=== PATIENT | female | born 1955 | race Caucasian/White ===

== ENCOUNTER 2018-10-04 08:38 | Emergency (ER) | payer BC, MEDICARE ==
[2018-10-04] MEDS ORDERED: Ondansetron 4 MG Tab.DIS PO ONE (09:27)
[2018-10-04] MEDS ORDERED: Acetaminophen/oxyCODONE 325-5 MG Tab PO ONE (09:28)
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
== END 2018-10-04 09:43 | disposition home or self-care (01) ==
LOC: JD.ED 08:38
DX: M46.1 Sacroiliitis, not elsewhere classified (principal); E78.00 Pure hypercholesterolemia, unspecified; I10 Essential (primary) hypertension; E11.9 Type 2 diabetes mellitus without complications; Z91.030 Bee allergy status; Z88.5 Allergy status to narcotic agent; Z88.0 Allergy status to penicillin; Z88.2 Allergy status to sulfonamides; Z79.899 Other long term (current) drug therapy; Z87.442 Personal history of urinary calculi; Z79.84 Long term (current) use of oral hypoglycemic drugs; Z87.891 Personal history of nicotine dependence
CPT/HCPCS: 99283; A9270; 99284